=== PATIENT | female | born 1970 | race African-American/Black ===

== ENCOUNTER 2020-10-26 20:49 | Emergency (ER) | payer OTHER ==
[2020-10-26 21:23] VITALS: BP 158/85; PULSE 102; TEMP 99.4; BMI 46.5
[2020-10-26] MEDS ORDERED: KETOROLAC TROMETHAMINE 60 MG/2 ML VIAL ONE (21:46)
[2020-10-26] MEDS ORDERED: KETOROLAC TROMETHAMINE 30 MG/1 ML VIAL IM ONE (21:50)
== END 2020-10-26 22:01 | disposition home or self-care (01) ==
LOC: JER 20:49
PROC: 3E0233Z Introduction of Anti-inflammatory into Muscle, Percutaneous Approach (ICD-10-PCS; principal; 2020-10-26)
DX: M54.5 Low back pain (principal)
CPT/HCPCS: 99284-25